=== PATIENT | female | born 1960 | race Caucasian/White ===

== ENCOUNTER 2017-03-08 19:21 | Inpatient (IN) | payer SELFPAY ==
[~2017-03-08] VITALS: Ht 175.3 cm; Wt 111.6 kg
[~2017-03-08 19:21] MED LIST: CYCL5TAB PO; EVER10TA PO; EXEM25TA5 PO; GABA-502 PO; HYDR-3605 PO; NAPR220C11 PO; PALB125C PO; [UNRECOGNIZED DRUG - CODE]
[2017-03-08 19:30] VITALS: BP 123/83; PULSE 117; RESP 18; O2SAT 95
[2017-03-08 20:14] LABS: BASOPHILS % (AUTO) 0.8 % (0-3); EOSINOPHILS % (AUTO) 0.8 % (0-5); MONOCYTES % (AUTO) 11.8 % (4-12); Mean Corpuscular Hemoglobin 27.8 pg (27.0-35.0); Mean Corpuscular Volume 87.5 fL (81-100); NEUTROPHILS % (AUTO) 66.5 % (40-74); Platelet Count 149 bil/L (150-400)
--- NOTE | 2017-03-08 21:10 | ED.REPORT ---
HPI-Abd Pain F 40 and Over Date of Service Mar 08, 2017 ED Provider: Mariusz Reed MD The pt is a 57 y/o female with a hx of breast cancer (s/p left breast biopsy and hormonal treatments) and kidney stones who presents to the ED complaining of ascites, onset 4 months ago. Associated sx include abdominal discomfort. She also complains of edema in both feet. The pt has not sought help for her sx yet as she does not have health insurance. Nursing Notes Stated Complaint: DISTENDED ABDOMEN, POSS ASCITES, SENT BY Chief Complaint: Female Abdominal Pain Nursing Notes Reviewed: Yes Allergies: Coded Allergies: Iodinated Contrast- Oral and IV Dye (Verified Allergy, Mild, TONGUE TINGLING, JAW TIGHTNESS, 01/17/14) Per radiologist, reaction to CT iodine contrast. Scheduled Everolimus (Afinitor) 10 Mg Tablet 10 MG PO DAILY Exemestane (Exemestane) 25 Mg Tablet 25 MG PO DAILY Gabapentin (Gabapentin) 300 Mg Capsule 300 MG PO DAILY HydrOXYzine HCl (HydrOXYzine HCl) 10 Mg Tablet 10 MG PO DAILY Naproxen Sodium (Aleve) 220 Mg Capsule 440 MG PO DAILY Palbociclib (Ibrance) 125 Mg Capsule 125 MG PO X1/WEEK ON X1 OFF Zoledronic Acid (Zometa) 4 Mg/5 Ml Sdv q 3 mos Scheduled PRN Cyclobenzaprine (Cyclobenzaprine) 5 Mg Tablet 5 MG PO TID PRN PRN For Headache General Time Seen by MD: 21:07 Chief Complaint Other (distended abdomen) Hx Obtained From: Patient Arrived By: Walk-in Sudden in Onset?: No Onset Occurred: More than a week ago... (4 months) Symptom Duration: Since onset Location: : Diffuse Radiation: : Does not radiate Severity: Current: Mild (discomfort) Severity: Maximum: Mild Recent Healthcare: No recent doctor visit Similar Sx Previous: No Past Medical History Past Medical History Breast cancer (s/p left breast biopsy and hormonal treatment) Kidney stones Depression 4 miscarriages Past Surgical History Periaortic nodes Abdomen lipoma Reports: Appendectomy, Cholecystectomy, Hysterectomy, Tonsillectomy Smoking History Unknown if Ever Smoker Social History Other Social History: Good social support, Ambulatory Status Independent Review of Systems Reports: Ascites Cardiovascular: Reports: Edema (both feet) GI: Reports: Abdominal pain (mild) Complete sys rev & neg: except as marked. Physical Exam Vital Signs Vital Signs (First) Date Time Temp Pulse Resp B/P Pulse Ox O2 Delivery O2 Flow Rate FiO2 03/08/17 19:30 36.8 117 18 123/83 95 03/08/17 21:36 Room Air Initial VS: Reviewed, Vital signs abnormal Head / Eyes: Atraumatic, Normocephalic Neck: Supple, Non-tender, Full range of motion Extremities: Vascular intact, Neuro intact, No swelling, No tenderness Skin: Warm, Dry, No cyanosis Neurologic: Alert, Oriented, Nonfocal General/Constitutional: Awake, Alert, Cooperative Respiratory / Chest: Atraumatic, Breath sounds NL, Breath sounds = bilat, No respiratory distress, No rales, No rhonchi, No wheezing Cardiovascular: Regular rhythm, Heart sounds NL, No gallop, No murmurs, No rubs Heart Rate / Rhythm: Positive: Tachycardia Lower Ext Edema: Positive: Bilateral 1+ (at the ankles), Pitting Abdomen: Atraumatic Tenderness/Guarding/Rebound: Positive: Tender diffuse (mild) Tense ascites. 1x4cm linear bruising at the right side of her abdomen. Back: Atraumatic, Full range of motion, Painless range of motion Interpretation & Diagnostics Lab Results Interpretation Result Diagram: 03/08/17195803/08/171958 Test 03/08/17 19:59 03/08/17 20:53 White Blood Count 3.7th/mm3 (3.8-10.1) Red Blood Count 4.32mil/mm3 (3.90-5.20) Hemoglobin 12.0g/dL (12.0-15.6) Hematocrit 37.8% (35.0-46.0) Mean Corpuscular Volume 87.5fL (81-100) Mean Corpuscular Hemoglobin 27.8pg (27.0-35.0) Mean Corpuscular Hemoglobin Concent 31.7% (32.0-37.0) Red Cell Distribution Width 14.6% (12.3-15.4) Platelet Count 149bil/L (150-400) Neutrophils (%) (Auto) 66.5% (40-74) Lymphocytes (%) (Auto) 19.8% (14-46) Monocytes (%) (Auto) 11.8% (4-12) Eosinophils (%) (Auto) 0.8% (0-5) Basophils (%) (Auto) 0.8% (0-3) Sodium Level 136mEq/L (134-144) Potassium Level 4.0mEq/L (3.5-5.2) Chloride Level 97mEq/L (97-108) Carbon Dioxide Level 24mmol/L (18-29) Blood Urea Nitrogen 13mg/dL (6-24) Creatinine 0.53mg/dL (0.57-1.00) Estimat Glomerular Filtration Rate 170mL/min (>59) Glucose Level 125mg/dL (60-99) Calcium Level 9.5mg/dL (8.5-10.1) Magnesium Level 2.0mg/dL (1.6-2.6) Total Bilirubin 0.4mg/dL (0.0-1.2) Aspartate Amino Transf (AST/SGOT) 34U/L (0-50) Alanine Aminotransferase (ALT/SGPT) 15U/L (0-32) Alkaline Phosphatase 91U/L (25-150) Total Protein 7.5g/dL (6.4-8.4) Albumin 3.7g/dL (3.4-5.0) Lipase 36U/L (13-60) Hold [place] Top Tube Received (Received) Urine Color Dark yellow (YELLOW) Urine Appearance Cloudy (CLEAR,HAZY) Urine pH 5.5 (5.0-8.0) Urine Specific Halls 1.025 (1.003-1.035) Urine Protein 100mg/dL (NEG,TRACE) Urine Glucose (UA) Negativemg/dL (NEGATIVE) Urine Ketones Tracemg/dL (NEGATIVE) Urine Occult Blood Negative (NEGATIVE) Urine Nitrite Negative (NEGATIVE) Urine Bilirubin Negative (NEGATIVE) Urine Urobilinogen Normalmg/dL (NORMAL) Urine Leukocyte Esterase Negative (NEGATIVE) Urine RBC 0-2/hpf (0-2) Urine WBC 0-5/hpf (0-5) Urine Epithelial Cells Moderate/hpf (NONE-MOD) Urine Crystals Oxalic acid crystals (NONE Urine Bacteria None/hpf (NONE-FEW) Urine Hyaline Casts None/lpf (NONE) Urine Granular Casts None seen (NONE SEEN) Urine Waxy Casts None seen (NONE SEEN) Urine Red Blood Cell Casts None seen (NONE SEEN) Urine White Blood Cell Casts None seen (NONE SEEN) Urine Mucus None seen (None Seen) Urine Trichomonas None seen (NONE SEEN) Urine Yeast None (NONE SEEN) Urinalysis Comment None Urine Culture Reflexed Not indicated Lab values outside NL range: no clinical significance. ECG Interpretation ECG Interpretation: Sinus tachycardia. Rate 112 Probable left atrial enlargement. Borderline T abnormalities, diffuse leads. Time: 20:02 Interpreted by: ED physician CT Abd / Pelvis Interpretation IMPRESSION: 1. In absence of IV and oral contrast, this exam is limited in evaluation of metastatic disease. 2. A large amount of ascites, which is new since 12/10/2015. There is omental thickening. In this patient with breast cancer, the findings are highly suspicious for carcinomatosis. 3. Worsening of retroperitoneal lymphadenopathy. 4. Haziness in mesentery could be secondary to confluent mesenteric metastasis. 5. Skin thickening in the left breast. Dictated by: Parker Arce M.D. on 03/08/2017 at 22:07 Approved by: Parker Arce M.D. on 03/08/2017 at 22:18 Study type: Abdominal CT no contrast Interpretation / Wet Read by: Interpret - Radiologist Re-Eval/Medical Decision Med Decision/Clinical Course 57-year-old female with a history of breast cancer presents with increasing abdominal distention. She has been avoiding care for months because of insurance reasons. Her CT scan shows diffuse ascites likely secondary to carcinomatosis. She will be admitted for further evaluation. Re-Evaluation/Progress #1: Time of Eval: 21:13 Re-Evaluation/Progress Note: Discussed the need for a CT scan. She understands. All questions answered. Re-Evaluation/Progress #2: Time of Eval: 22:42 Re-Evaluation/Progress Note: Rechecked pt. Discussed lab results, imaging results,diagnosis and plan to admit. Pt understands and agrees with the plan for admission. All questions addressed. Consultation : Referral / Consult Name: Jill Lopez MD Consulted With: Hospitalist Call Returned at: 22:49 Construction And Maintenance Inspector: Will see patient, Agrees with eval, Agrees with plan, Accepts admit Counseled Regarding: Diagnosis, Lab results, Need for admission Discharge & Departure Primary Impression: Ascites Ascites type: other type Qualified Code: R18.8 - Other ascites Disposition: ADMITTED TO HOSPITAL Discharge Condition All VS Reviewed: Yes Referrals: [facility] Scribe Attestation Portions of this note were transcribed by Russell Damon. I,, personally performed the history, physical exam and medical decision-making;I reviewed and confirmed the accuracy of the information in the transcribed note. Signed by Kellie Hooks. 03/08/17 Mariusz Reed MD Mar 08, 2017 21:10 Russell Damon Mar 08, 2017 21:16
[2017-03-08 21:17] LABS: APPEARANCE,URINE CLOUDY (CLEAR,HAZY); COLOR,URINE DARK YELLOW (YELLOW); OCCULT BLOOD,URINE NEGATIVE (NEGATIVE); PH,URINE 5.5 (5.0-8.0); UROBILINOGEN,URINE NORMAL (NORMAL)
[2017-03-08] MEDS ORDERED: 0.9% Sodium Chloride 500 ML IV ONE (21:20)
[2017-03-08 21:36] VITALS: PULSE 118; O2SAT 96
[2017-03-08] MEDS ORDERED: Ondansetron 2 mg/mL 2 mL Inj IVPUSH PRN ×2 (22:00→22:05)
[2017-03-08 22:17] VITALS: PULSE 107; O2SAT 96
--- NOTE | 2017-03-08 22:20 | DRSVH ---
PROCEDURE: CT ABDOMEN AND PELVIS WITHOUT CONTRAST ([id number]) INDICATIONS: 57 year-old woman with pain and distention, hx breast Ca TECHNIQUE: Noncontrast 5 mm thick sections acquired from the diaphragms to the symphysis. 5 mm coronal and sagi ttal reformats were then performed. For radiation dose reduction, the following was used: automated exposure control, adjustment of mA and/or kV according to patient size. COMPARISON: [facility], CT, CHEST/ABD/PELVIS W/CON (PNL), 09/16/2014, 12:47. [facility], CT, CT CHEST ABD PELVIS W CON, 12/10/2015, 12:50. FINDINGS: Image quality: Excellent. ABDOMEN: Lung bases: Lung bases are clear. Heart size is normal. Small hiatal hernia. There is skin thickeni ng in the left breast. Solid organs: Liver demonstrates nodular contour. Liver and spleen are normal in size. Gallbladder is surgically absent. Pancreas is suboptimally visualized. No adrenal nodules. Kidneys are normal in size, without hydronephrosis or nephrolithiasis. Peritoneum and bowel: Unenhanced bowel loops demonstrate normal wall thickness and caliber. There i s a large amount of ascites. There is omental thickening. No free air. Nodes and vessels: There is mesenteric haziness. Cannot rule out mesenteric masses. There is a 2.9 c m lymph node in the left para-aortic region, increased in size, consistent with worsening of metastat ic disease. Aorta and inferior vena cava are normal in caliber. Miscellaneous: No ventral hernias. PELVIS: Genitourinary: Bladder wall thickness is normal. Miscellaneous: No inguinal hernias or adenopathy. Bones: No suspicious bony lesions. No vertebral body compression fractures. IMPRESSION: 1. In absence of IV and oral contrast, this exam is limited in evaluation of metastatic disease. 2. A large amount of ascites, which is new since 12/10/2015. There is omental thickening. In this louise ent with breast cancer, the findings are highly suspicious for carcinomatosis. 3. Worsening of retroperitoneal lymphadenopathy. 4. Haziness in mesentery could be secondary to confluent mesenteric metastasis. 5. Skin thickening in the left breast. Dictated by: Parker Arce M.D. on 03/08/2017 at 22:07 Approved by: Parker Arce M.D. on 03/08/2017 at 22:18
[2017-03-09] VITALS (7 sets, daily range): BP systolic 112–145; BP diastolic 57–85; PULSE 98–109; RESP 17–20; O2SAT 93–97
[2017-03-09] MEDS ORDERED: Ondansetron 2 mg/mL 2 mL Inj IVPUSH PRN ×2 (00:05→00:10)
[2017-03-09] MEDS ORDERED: Alum-Mag Hydrox-Simeth 30 mL Suspension PO PRN ×2 (00:05→00:10)
[2017-03-09] MEDS ORDERED: Polyethylene Glycol (PEG) 17 Gm Powder PO PRN (00:05)
--- NOTE | 2017-03-09 01:00 | NUR ---
Admit Patient arrived on unit able to self transfer independently to bed from wheelchair. Hospitalist arrived shortly after for assessment. Patient has been oriented to room/lights. She is A&O able to make needs known. States pain in back is felt when upright d/t pressure from distended abdomen, however denies pain at this time. Care continues.
[2017-03-09] MEDS ORDERED: PALB125C PO (01:28)
--- NOTE | 2017-03-09 01:52 | PCM.HPMED ---
Subjective Date of Service Mar 09, 2017 Primary Provider: Admitting Physician: Jill Lopez MD Primary Care Physician: Nopcp Attending Physician: Jill Lopez MD Admit Status: From the Emergency Department, Full Admit, [facility] Telemetry Chief Complaint: Ascites. . History of Present Illness: Sheela Frias is a 57-year-old female with a past medical history significant for left breast cancer status post lumpectomy and chemotherapy who presents to [facility] emergency Department complaining of worsening ascites. She reports that she began having abdominal swelling in September 2016. She reports that her abdominal swelling has gradually increased to the point that she has significant discomfort. She also has associated shortness of breath, nausea and back pain. She has gradually had more swelling in her lower extremities over the last week as well. She vomited one time this evening due to significant nausea. She denies headache, vision changes, congestion, cough, chest pain, palpitations, abdominal pain, fever, chills, night sweats, dysuria, diarrhea or constipation. She has a poor appetite that has gradually been worsening since July 2016 to the extent that she only eats a hard boiled egg a day. She has had muscle wasting and likely significant weight loss but due to the ascites unable to verify the amount. She reports she has not sought help for her symptoms yet as she does not have health insurance. Vital signs in the ER: Temperature 36.8. Pulse 117. Respiratory rate 18. Blood pressure 123/83. Pulse ox 95% on room air. She received in the ED ondansetron IV 4 mg 2, and 1 L of NS. [facility]CP as [facility]. Oncologist is Dr. Sparrow. . Review of Systems: A comprehensive review of systems was conducted with the patient and found to be negative except as above in the History of Present Illness. . Allergies Coded Allergies: Iodinated Contrast- Oral and IV Dye (Verified Allergy, Mild, TONGUE TINGLING, JAW TIGHTNESS, 01/17/14) Per radiologist, reaction to CT iodine contrast. Home Medications Cyclobenzaprine 5 mg 3 times a day as needed for muscle spasm. Naproxen 440 mg daily. Ibrance 125 mg every other week. . PMH 1. Breast cancer status post lumpectomy and hormonal treatment) 2. Depression. 3. Muscle spasms. 4. History of miscarriages 4. . Surgical History 1. Left lumpectomy. 2. Removal of abdominal lipoma. 3. Appendectomy. 4. Cholecystectomy. 5. Total abdominal hysterectomy with bilateral salpingo-oophorectomy. 6. Tonsillectomy. 7. Lymphadenectomy of mesenteric nodes. 8. Left breast biopsy x 2. . Family History Father with paget's disease and parkinson's disease. Mother who from COPD. 5 paternal aunts with breast cancer. She has one sister and a half bother and a half sister who are all healthy. . Social History Hx Alcohol Use: No Hx Substance Use: No Hx Tobacco Use: No Smoking Status: Never Smoker Additional Information The patient is x 17 years. She is previously and . She has one son who is presumed healthy but they are estranged. 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 . Exam Vital Signs Vital Sign - Last Date Time Temp Pulse Resp B/P Pulse Ox O2 Delivery O2 Flow Rate FiO2 03/08/17 22:17 107 96 Room Air 03/08/17 19:30 36.8 18 123/83 Intake and Output 03/08/17 03/08/17 03/09/17 Cumulative From/Thru 15:00 23:00 07:00 03/08/17 19:30 - 03/08/17 21:36 Intake Total 999 ml 999 ml Balance 999 ml 999 ml Intake IV Total 999 ml 999 ml Exam General: Middle-aged female lying in bed and in no acute distress, appears older than stated age, appropriately interactive HEENT: Normocephalic, atraumatic. External ears without defect. Pupils equal, round, and reactive to light. Anicteric sclerae, moist conjunctivae, and no lid lag. Oropharynx free of erythema and cobble stoning with moist mucosa. Neck: Supple with full range of motion. No jugular venous distension. No bruits. No lymphadenopathy or thyromegaly. Cardiovascular: Regular rate and rhythm without murmurs, rubs, or gallops appreciated Pulmonary: Clear to auscultation bilaterally without crackles, wheezes, or rhonchi. Normal respiratory effort with no use of accessory muscles. Abdomen: Severely distended and tympanic abdomen. No hepatosplenomegaly or masses appreciated. Extremities: Bilateral moderate lower extremity pitting edema to knees. Skin: Normal temperature, turgor, and texture; no rash, ulcers, or subcutaneous nodules appreciated. Neurological: Cranial nerves grossly intact. Normal muscle strength, tone, and bulk. Reflexes, coordination, and sensory function within normal limits. No known gait impairment. Psychiatric: Normal mood and affect. Alert and oriented to person, place, and time. . Lab and Diagnostics Labs Item Value Date Time Calcium Level 9.5 mg/dL 03/08/171958 Magnesium Level 2.0 mg/dL 03/08/171958 Total Bilirubin 0.4 mg/dL 03/08/171958 Aspartate Amino Transf (AST/SGOT) 34 U/L 03/08/171958 Alanine Aminotransferase (ALT/SGPT) 15 U/L 03/08/171958 Alkaline Phosphatase 91 U/L 03/08/171958 Total Protein 7.5 g/dL 03/08/171958 Albumin 3.7 g/dL 03/08/171958 Lipase 36 U/L 03/08/171958 Result Diagram: 03/08/17195803/08/171958 X-Rays, CTs and MRIs CT ABDOMEN AND PELVIS WITHOUT CONTRAST IMPRESSION: 1. In absence of IV and oral contrast, this exam is limited in evaluation of metastatic disease. 2. A large amount of ascites, which is new since 12/10/2015. There is omental thickening. In this patient with breast cancer, the findings are highly suspicious for carcinomatosis. 3. Worsening of retroperitoneal lymphadenopathy. 4. Haziness in mesentery could be secondary to confluent mesenteric metastasis. 5. Skin thickening in the left breast. Dictated by: Parker Arce M.D. on 03/08/2017 at 22:07 . 12-lead ECG EKG: Sinus tachycardia, heart rate 112, low voltage in throughout all, normal axis, normal intervals, poor R-wave progression, no pathological Q waves or acute ischemic changes such as ST elevation or depression. . Assessment & Plan Sheela Frias is a 57-year-old female with a past medical history significant for left breast cancer status post lumpectomy and chemotherapy who presents to [facility] emergency Department complaining of worsening ascites. 1. Acute on chronic ascites, present on admission. Active. - Likely represents malignant ascites with past medical history significant for left breast cancer. - No leukocytosis, fever, chills or systemic signs of infection. - Ordered procalcitonin, pending. Note, if the patient has any liver mets this will be falsely elevated. - CT abdomen and pelvis without contrast demonstrated large amount of new ascites, omental thickening highly suspicious for carcinomatosis, worsening of retroperitoneal lymphadenopathy, haziness in mesentery could be secondary to confluent mesenteric metastasis and skin thickening in the left breast, as above. - Plan for diagnostic and therapeutic paracentesis tomorrow morning. Chronic problems: 2. Left breast cancer status post lumpectomy and chemotherapy thought to be in remission. - Continue Ibrance 125 mg every other week. - Ordered oncology consultation with Dr. Sparrow. 3. Depression, present on admission. Stable. - Not medically treated. 4. Muscle spasms, present on admission. Stable. - Continue cyclobenzaprine 5 mg 3 times a day as needed for muscle spasm. PRN antiemetics: Zofran and Maalox. PRN bowel regimen: Senna and MiraLAX. PRN analgesics: Tylenol. Patient is admitted under inpatient status with expected length of stay greater than 2 midnights due to severity of presenting symptoms, risk of adverse event, and complexity of treatment plan. . VTE Prophylaxis: Sub-Q Enoxaparin Resuscitation Status: CPR: Attempt Resuscitation Attending Statement Patient has been seen and examined by myself with medical records custodian and agree with above history, physical, assessment and plan. copies to: Kelvin Sparrow [place] M DO Mar 09, 2017 00:07 Jill Lopez MD Mar 09, 2017 06:11
[2017-03-09] MEDS ORDERED: Albumin 25% 50 GM in IV Premix 1 EACH IV SCH (05:15)
[2017-03-09 05:58] LABS: EOSINOPHILS % (AUTO) 1.3 % (0-5); MONOCYTES % (AUTO) 18.2 % (4-12); Mean Corpuscular Hemoglobin 27.3 pg (27.0-35.0); Mean Corpuscular Volume 88.5 fL (81-100); NEUTROPHILS % (AUTO) 51.4 % (40-74); Platelet Count 125 bil/L (150-400)
[2017-03-09 06:35] LABS: INR 0.97 ratio
[2017-03-09] MEDS ORDERED: Albumin 25% 50 GM in IV Premix 1 EACH IV ONE (13:07)
--- NOTE | 2017-03-09 13:11 | NUR ---
Paracentesis Pt had successful Paracentesis, 11 Liters drained. Pt BP in normal limits, she tolerated procedure well. Catheter Dc'd intact at approximately 1235. Report given to Graciela Welch RN.
[2017-03-09 13:13] LABS: BFWBC 590 /mm3
[2017-03-09 13:17] LABS: MONOCYTES,BODY FLUID 40 %; OTHER CELLS,BODY FLUID 0
--- NOTE | 2017-03-09 13:38 | DRSVH ---
PROCEDURE: US GUIDED PARACENTESIS, PRIMARY ([id number]) INDICATIONS: large vol ascites poss malignant TECHNIQUE: The indications, alternatives, benefits, risks, and complications of the procedure were explained to the patient. Written informed consent was obtained and placed in the chart. The abdomen and pelvis were examined sonographically, and an appropriate site was chosen for paracentesis. The skin was pre pared and draped in the usual sterile fashion, and 1% lidocaine was infiltrated from the skin down th rough the peritoneal surface. A 19-gauge catheter-covered needle was then introduced into the perito milena space, the catheter was advanced and the needle was withdrawn, and thereafter peritoneal fluid w as withdrawn. The catheter was then removed and a dressing was applied. The fluid was discarded if the clinician did not order diagnostic testing of the fluid. COMPARISON: [facility], US, BREAST(S) SONOGRAM, 05/23/2012, 14:29. FINDINGS: Access site: Left lower quadrant Needle: One-Step centesis catheter with introducer needle. Fluid volume and description: 11 L of yellow fluid Fluid sent for diagnostic testing: Yes Medications: 1% lidocaine for local anaesthesia. Complications: None. IMPRESSION: Successful ultrasound-guided paracentesis. Dictated by: Dalton Mondragon M.D. on 03/09/2017 at 13:36 Approved by: Dalton Mondragon M.D. on 03/09/2017 at 13:37
[2017-03-09] MEDS: Albumin 25% 50 GM in IV Premix 1 EACH IV SCH ×2 (14:10→16:00)
[2017-03-09 16:03] LABS: Bilirubin, Direct < 0.2 mg/dL (0.0-0.3)
--- NOTE | 2017-03-09 17:26 | PROG NOTE ---
[address] [address] PROGRESS NOTE PATIENT: LAURY SWANN : 1960 MR#: [id number] ADMIT: 03/08/2017 JOB ID: [id number] DATE: 03/09/2017 SUBJECTIVE: The patient is being seen today per hospital rounds. She carries a diagnosis of metastatic breast cancer originally identified in October 2010. Last seen in our clinic on October 2015, at which time she was on fourth line therapy with palbociclib and fulvestrant. She was subsequently lost to followup. The patient states that in July 2016, she started to notice increasing dyspepsia and reflux-type symptoms. She also noted a slow but progressive monthly sense of abdominal distention which she attributed mostly to indigestion-type symptoms. Unfortunately, in February 2017, she started developing increasing shortness of breath to the point where she ended up in the emergency department at [facility]. Initial workup on admission included a CT of the abdomen and pelvis dated March 08, 2017. This was compared to the CT scan of the abdomen and pelvis dated December 10, 2015. The CT scan confirmed a large amount of new ascites with associated omental thickening. Worsening retroperitoneal adenopathy and haziness in the mesentery believed to be secondary to confluent mesenteric metastasis. There was also skin thickening in the left breast. The patient subsequently underwent a paracentesis on March 08, 2017 with an approximate 11 L of fluid removed. The patient has seen tremendous benefits with normalization of her breathing, however, persistent abdominal distention. The remainder of her review of systems is otherwise negative for any acute pain, headaches or visual changes, fevers or chills. PAST MEDICAL HISTORY: Significant for: 1. De spencer metastatic breast cancer. Diagnosis: October 2010. Surgical staging hysterectomy, bilateral oophorectomy and lymph node dissection. Pathology confirming four lymph nodes in the retroperitoneum as well as right ovarian, all positive for metastatic poorly differentiated adenocarcinoma, ER/DC positive, HER-2 negative. Clinical staging workup baseline: October 2010 CT chest, abdomen and pelvis and bone scan as well as MRI of the breast reporting malignant-appearing lesions in the left breast. Multiple left subpectoral axillary lymph nodes. Multiple enlarged mesenteric lymph nodes, indeterminate rib lesion, right 8th and 10th rib, as well as the left 5th rib. First line treatment metastatic setting: Anastrozole, monthly Zometa. Clinical staging workup, on anastrozole: February 02, 2013, PET-CT scan (reflection of two years of anastrozole) confirming progression of disease within the left breast and axilla with SUV at the 6.8 range, retroperitoneal mesenteric nodes were all stable. No bony lesions seen. Second line therapy: February 2013, tamoxifen-January 2014. Restaging workup on tamoxifen: June 04, 2014, MRI of the brain and bone scan negative for SANDER MACHINE or osseous disease. June 12, 2014, CT of the abdomen and pelvis. Lesley progression, left hilar, mesenteric, and retroperitoneal lymph nodes. Third line therapy metastatic setting, Aromasin plus Afinitor. May 2014-December 2014: Clinical staging, on Afinitor Aromasin therapy: November 07, 2013, CT of the chest with contrast: Overall improvement in bilateral ground-glass opacities, pretracheal lymph node is stable at 17 mm. No new disease seen. This is a reflection of five months of therapy. Treatment was discontinued secondary to intolerable side effects. 4th line therapy in the metastatic setting: January 2015-October 2015, fulvestrant, palbociclib. Treatment discontinued secondary to insurance reasons. Clinical staging workup: March 08, 2017, CT of abdomen and pelvis approximately one year and two months off therapy. Marked ascites, new mesenteric and peritoneal wall thickening, increased retroperitoneal adenopathy PAST SURGICAL HISTORY: Significant for D and C in her 30s. Lumpectomy in 2013, without sentinel node procedure. FAMILY HISTORY: Negative for cancer or hematological malignancy. PHYSICAL EXAMINATION: Vital signs today reporting a weight of 111 kg, blood pressure 117/57. She is A and O x3. In good spirits overall. Affect is appropriate. Abdomen distended. LABORATORY DATA: Today reporting a white cell count of 3, hemoglobin 10.4, platelet count of 125. Sodium 138, potassium 4, serum creatinine 0.51. Glucose 115. AST 31, ALT 12, alk phos 78. ASSESSMENT AND PLAN: The patient is a very pleasant, 57-year-old female, unfortunately, having progression of disease over the past eight months off therapy due to insurance reasons. The patient presents with significant abdominal distention, new peritoneal and mesenteric thickening as well as increased retroperitoneal adenopathy. The patient is status post diagnostic and therapeutic paracentesis with 11 L of fluid removed. Will be confirming cytology as well as predictive markers, ER/DC, HER-2 have been sent. The patient is scheduled to return home this afternoon with a followup in the oncology clinic this coming Tuesday. The purpose of the visit will be to assess whether she needs a repeat therapeutic paracentesis. The patient states that she believes within the next 1-2 weeks she will be obtaining insurance and wishes to hold off any further imaging studies until then. Plan at this time is follow up on pathology from ascitic fluid, confirm appropriate cytology, and predictive markers have been run. Return to Oncology Clinic on March 14, 2017. Further management will be determined at that time.
--- NOTE | 2017-03-09 17:50 | NUR ---
Social Work- Initial Assessment/ Multidisciplinary Rounds Data: See Initial Assessment and Advance Directive Intervention for additional information. Pt discussed in rounds. No D/c needs identified in rounds. Pt screened in for initial assessment due to insurance status. Pt is a 57 year old admitted for ascites on 03/08/17 per H&P. Pt has no insurance at this time. Pt has no PCP at this time. Pt's readmit risk score is not listed at this time. SW met with pt and at bedside regarding discharge plan, SW role explained. Pt alert and oriented x3. Pt's capacity for self-care assessed. Pt resides on [facility] in a home with spouse. Pt is independent with ADLs and self-care. Pt uses no DME at baseline. Pt drives. Pt has DPOA on file, Wali Breaux is DPOA. SW spoke with pt and regarding insurance. They are currently working on obtaining insurance that is appropriate for their financial status as they are over resources for [employer]. Pt and have legal assistance regarding this and have no concerns or questions about the process. Declined additional help but are agreeable to contact [employer] if they have questions. SW provided financial investment manager application and oriented them to patient financial services. SW provided d/c planning checklist and wrote phone number and plan on whiteboard. Pt to d/c home with to transport via POV. No additional d/c needs anticipated. Assessment: Pt who is independent at baseline with ADLs and self-care Plan: Pt and are working on their insurance, hopeful that it will be retroactive for this admission. hotel maid application provided. Pt to d/c home with her to transport via POV. No additional d/c needs, SW will continue to follow. ROSARIO Castellanos Addendum: 03/09/17 at 1755 by SOLO MEYER Amended: Links added.
--- NOTE | 2017-03-09 17:58 | PCM.DC.MED ---
Discharge Summary Date of Service Mar 09, 2017 Dates of Hospitalization Date of Hospital Admission Mar 08, 2017 at 23:40 Date of Discharge: Mar 09, 2017 Providers: Admitting Physician: Jill Lopez MD Primary Care Physician: Nopcp Attending Physician: Horacio Rome MD Diagnosis at Time of Discharge Diagnosis at Time of Discharge Ascites Consultations Hem/Onc Procedures XRay, CTs & MRIs CT ABDOMEN AND PELVIS WITHOUT CONTRAST IMPRESSION: 1. In absence of IV and oral contrast, this exam is limited in evaluation of metastatic disease. 2. A large amount of ascites, which is new since 12/10/2015. There is omental thickening. In this patient with breast cancer, the findings are highly suspicious for carcinomatosis. 3. Worsening of retroperitoneal lymphadenopathy. 4. Haziness in mesentery could be secondary to confluent mesenteric metastasis. 5. Skin thickening in the left breast. Dictated by: Parker Arce M.D. on 03/08/2017 at 22:07 . ECG 12 Lead EKG: Sinus tachycardia, heart rate 112, low voltage in throughout all, normal axis, normal intervals, poor R-wave progression, no pathological Q waves or acute ischemic changes such as ST elevation or depression. . Other Diagnostics Anemia of chronic disease History of breast cancer Hospital Course Hospital Course: Sheela Frias is a 57-year-old female with a past medical history significant for left breast cancer status post lumpectomy and chemotherapy who presents to [facility] emergency Department complaining of worsening ascites. Patient has history of breast cancer and follows with Dr. Sparrow. Patient underwent paracentesis with 11 L of fluid removed. Albumin IV was ordered. Dr. Sparrow so the patient the patient in the hospital. I discussed plan of care with him. He advised to discharge the patient home, he will follow up with her next week for further observation and management. Patient and her agreed to that plan. After patient improved she was discharged home with recommendation to follow up with her PCP and Oncologist for further management of her medical problems. Patient will also follow-up with Dr. Davison regarding her discharge medications as they were not accurate in our system. Patient Condition @ Discharge: good Discharge Disposition: home Discharge Activity: resume regular activity, patient was advised to avoid heavy physical work or exertion Discharge Diet: regular diet, heart healthy, low fat, low salt, high fiber Information Provided to Patient: information about discharge medications TIME SPENT IN DISCHARGE ACTIVITY: Face to face activity greater then 30 minutes spent in discharge activity. 1. Discussed with patient/ family re: discharge plan of care/treatment, and follow up care/services. 2. Patient/family agreed with discharge plan and further plan of care, all questions were answered/addressed, no further questions at the time of discharge. Exam Vital Signs (Last) Date Time Temp Pulse Resp B/P Pulse Ox O2 Delivery O2 Flow Rate FiO2 03/09/17 16:46 36.7 101 20 118/69 97 Room Air Test 03/08/17 19:59 03/08/17 20:53 03/09/17 05:04 03/09/17 06:10 Magnesium Level 2.0mg/dL (1.6-2.6) Lipase 36U/L (13-60) Procalcitonin 0.04ng/mL (0.00-0.08) Hold [place] Top Tube Received (Received) Urine Color Dark yellow (YELLOW) Urine Appearance Cloudy (CLEAR,HAZY) Urine pH 5.5 (5.0-8.0) Urine Specific [place] 1.025 (1.003-1.035) Urine Protein 100mg/dL (NEG,TRACE) Urine Glucose (UA) Negativemg/dL (NEGATIVE) Urine Ketones Tracemg/dL (NEGATIVE) Urine Occult Blood Negative (NEGATIVE) Urine Nitrite Negative (NEGATIVE) Urine Bilirubin Negative (NEGATIVE) Urine Urobilinogen Normalmg/dL (NORMAL) Urine Leukocyte Esterase Negative (NEGATIVE) Urine RBC 0-2/hpf (0-2) Urine WBC 0-5/hpf (0-5) Urine Epithelial Cells Moderate/hpf (NONE-MOD) Urine Crystals Oxalic acid crystals (NONE Urine Bacteria None/hpf (NONE-FEW) Urine Hyaline Casts None/lpf (NONE) Urine Granular Casts None seen (NONE SEEN) Urine Waxy Casts None seen (NONE SEEN) Urine Red Blood Cell Casts None seen (NONE SEEN) Urine White Blood Cell Casts None seen (NONE SEEN) Urine Mucus None seen (None Seen) Urine Trichomonas None seen (NONE SEEN) Urine Yeast None (NONE SEEN) Urinalysis Comment None Urine Culture Reflexed Not indicated White Blood Count 3.0th/mm3 (3.8-10.1) Red Blood Count 3.81mil/mm3 (3.90-5.20) Hemoglobin 10.4g/dL (12.0-15.6) Hematocrit 33.7% (35.0-46.0) Mean Corpuscular Volume 88.5fL (81-100) Mean Corpuscular Hemoglobin 27.3pg (27.0-35.0) Mean Corpuscular Hemoglobin Concent 30.9% (32.0-37.0) Red Cell Distribution Width 14.7% (12.3-15.4) Platelet Count 125bil/L (150-400) Neutrophils (%) (Auto) 51.4% (40-74) Lymphocytes (%) (Auto) 28.1% (14-46) Monocytes (%) (Auto) 18.2% (4-12) Eosinophils (%) (Auto) 1.3% (0-5) Basophils (%) (Auto) 1.0% (0-3) Sodium Level 138mEq/L (134-144) Potassium Level 4.0mEq/L (3.5-5.2) Chloride Level 101mEq/L (97-108) Carbon Dioxide Level 24mmol/L (18-29) Blood Urea Nitrogen 13mg/dL (6-24) Creatinine 0.51mg/dL (0.57-1.00) Estimat Glomerular Filtration Rate 177mL/min (>59) Glucose Level 115mg/dL (60-99) Calcium Level 8.5mg/dL (8.5-10.1) Total Bilirubin 0.2mg/dL (0.0-1.2) Direct Bilirubin < 0.2mg/dL (0.0-0.3) Aspartate Amino Transf (AST/SGOT) 31U/L (0-50) Alanine Aminotransferase (ALT/SGPT) 12U/L (0-32) Alkaline Phosphatase 78U/L (25-150) Total Protein 5.8g/dL (6.4-8.4) Albumin 3.2g/dL (3.4-5.0) Prothrombin Time 10.4sec (8.1-12.5) Prothromb Time International Ratio 0.97ratio Test 03/09/17 12:30 Body Fluid Source Peritoneal fluid Body Fluid Color Yellow (Clear) Body Fluid Appearance Hazy Body Fluid WBC 590/mm3 Body Fluid RBC 435/mm3 Body Fluid Polynuclear WBCs 5% Body Fluid Lymphocytes 55% Body Fluid Monocytes 40% Body Fluid Eosinophils 0% Body Fluid Basophils 0% Discharge Medications Discharge Medications Everolimus (Afinitor) 10 Mg Tablet 10 MG PO DAILY (Reported) Exemestane (Exemestane) 25 Mg Tablet 25 MG PO DAILY (Reported) Gabapentin (Gabapentin) 300 Mg Capsule 300 MG PO DAILY (Reported) HydrOXYzine HCl (HydrOXYzine HCl) 10 Mg Tablet 10 MG PO DAILY (Reported) Naproxen Sodium (Aleve) 220 Mg Capsule 440 MG PO DAILY (Reported) Palbociclib (Ibrance) 125 Mg Capsule 125 MG PO X1/WEEK ON X1 OFF (Reported) Palbociclib (Ibrance) 125 Mg Capsule 125 MG PO DAILY (Reported) Zoledronic Acid (Zometa) 4 Mg/5 Ml Sdv q 3 mos (Reported) As needed Cyclobenzaprine (Cyclobenzaprine) 5 Mg Tablet 5 MG PO TID PRN PRN For Headache ( Reported) Horacio Rome MD Mar 09, 2017 17:58 Discharge Medications Discharge Medications Everolimus (Afinitor) 10 Mg Tablet 10 MG PO DAILY (Reported) Exemestane (Exemestane) 25 Mg Tablet 25 MG PO DAILY (Reported) Gabapentin (Gabapentin) 300 Mg Capsule 300 MG PO DAILY (Reported) HydrOXYzine HCl (HydrOXYzine HCl) 10 Mg Tablet 10 MG PO DAILY (Reported) Naproxen Sodium (Aleve) 220 Mg Capsule 440 MG PO DAILY (Reported) Palbociclib (Ibrance) 125 Mg Capsule 125 MG PO X1/WEEK ON X1 OFF (Reported) Palbociclib (Ibrance) 125 Mg Capsule 125 MG PO DAILY (Reported) Zoledronic Acid (Zometa) 4 Mg/5 Ml Sdv q 3 mos (Reported) As needed Cyclobenzaprine (Cyclobenzaprine) 5 Mg Tablet 5 MG PO TID PRN PRN For Headache ( Reported) Horacio Rome MD Mar 09, 2017 17:58
--- NOTE | 2017-03-09 18:26 | NUR ---
DC Pt discharges with to home. Ambulates with steady gait and decreased SOB. Pt taken via WC by to car. All belonging in hand. All discharge instructions understood and no further questions. Care discontinues Pt to follow up on Tuesday with Oncology.
--- NOTE | 2017-03-16 12:41 | PATH ---
SURGICAL PATHOLOGY Attending Physician:Kelvin Sparrow (PENDING SALE TO [facility]), CASE STATUS: Signed Out PATIENT NAME: LAURY SWANN PID: [id number] : 1960 DATE COLLECTED:03/09/2017 00:00 SPECIMEN: Peritoneal Fluid CLINICAL HISTORY: Peritoneal Fluid ICD-10 code not given FINAL DIAGNOSIS: PERITONEAL FLUID, CYTOLOGY AND CELL BLOCK: POSITIVE FOR MALIGNANCY, SEE COMMENT. ICD10 R18 NOTE: The cytology specimen demonstrates atypical cells present singly and in cohesive clusters in a background of mesothelial cells. The cells have high nuclear to cytoplasmic ratio, nuclear irregularity, and occasional cells with intracytoplasmic vacuoles. Immunohistochemical stains are performed to evaluate the nature of the neoplastic cells. The neoplastic cells are positive for TIGRE-3 (strong), ER (30% moderate to strong positivity), MOC-31 (rare cells with weak membranous staining), mammaglobin (scattered cells, with strong staining), E-cadherin (scattered cells with weak membranous staining) and are negative for GCDFP-15, WT-1, PAX-8, BerEP4,Calretinin, D-240, AR, and HER2 (score of 0) by immunohistochemistry. The patient' s history of lobular breast carcinoma is noted. Overall, based on the cytology, immunohistochemical staining profile and the clinical history, the findings are compatible with metastases from the patients known breast carcinoma.Clinical and radiological correlation is recommended. As part of a routine quality compliance manager, Dr. Rajan Gamez has also reviewed this case and agrees with the interpretation. GROSS DESCRIPTION: Received fresh on 03/10/2017 is approximately 100 cc of clear yellow fluid. Prepared are one cell block and one Cytospin slide. Vo MICRO DESCRIPTION: Immunohistochemical stains are performed to evaluate the neoplastic cells. The immunohistochemical stains performed are MOC-31, ER, TIGRE-3, Calretinin, D-240, AR, GCDFP-15, Mammoglobin, WT-1, PAX-8, E-cadherin, BerEP4 and HER2. The control stains show appropriate reactivity. This test was developed and its performance characteristics determined by [facility]. It has not been cleared or approved by the U. S. Food and Drug Administration. The FDA has determined that such clearance or approval is not necessary. This test is used for clinical purposes. It should not be regarded as investigational or for research. ICD-9 CODES: CPT CODES: 1: 89257, 83355, 72218, 47158, 96791, 65488, 10761, 54318, 33267, 77046, 45131, 38908, 36846, 82491, 31978 Electronically Signed Out Anil Cameron MD [facility] Pathology [facility] [address], [place] [address] Technical component performed at [facility], [address], [place], [address]
== END 2017-03-09 18:26 | disposition home or self-care (01) | DRG 375 ==
LOC: SED 19:21 → OBSVTOIN 23:40 → OSC 23:40
PROVIDERS: ADMIT Specialist; ATTEND Internal Medicine
PROC: 0W9G3ZX Drainage of Peritoneal Cavity, Percutaneous Approach, Diagnostic (ICD-10-PCS; principal; 2017-03-09)
DX: C78.6 Secondary malignant neoplasm of retroperitoneum and peritoneum (principal); R18.8 Other ascites; D63.8 Anemia in other chronic diseases classified elsewhere; M62.838 Other muscle spasm; Z85.3 Personal history of malignant neoplasm of breast; Z90.49 Acquired absence of other specified parts of digestive tract